=== PATIENT | female | born 1990 | race Caucasian/White ===

== ENCOUNTER → 2018-05-12 | Outpatient (CLI) | payer OTHER ==
[~2018-05-12] MED LIST: AC325T PO; CEFU500T34 PO; CEFU500T5 PO; DILT180C PO; OXYC-12 PO; PREN1TAB39; RNT150T PO
== END ==
LOC: CARD 10:39
PROVIDERS: ATTEND Internal Medicine Cardiovascular Disease
DX: R07.89 Other chest pain (principal); I47.1 Supraventricular tachycardia
CPT/HCPCS: 93306

== ENCOUNTER 2018-11-08 03:22 | Inpatient (IN) | payer BC, OTHER ==
[2018-11-08] VITALS (66 sets, daily range): BP systolic 88–133; BP diastolic 51–82
[~2018-11-08] VITALS: Ht 162.6 cm; Wt 102.1 kg
--- NOTE | 2018-11-08 03:25 | NUR ---
ELIZABETH ELLIOTT presented to unit via ambulatory from ED, accompanied by s/o, with c/o CONTRACTIONS. ELIZABETH ELLIOTT weighed, gowned, voided, and to bed. EFHM and TOCO applied, VS taken. ELIZABETH ELLIOTT oriented to bed controls, call light, TV, heat, and A/C controls.
[2018-11-08] MEDS ORDERED: D5 LR IV SOLUTION 1,000 ML IV ONE (03:46)
[2018-11-08] MEDS ORDERED: AMPICILLIN 2,000 MG/20 ML (IV USE) ONE (03:46)
[2018-11-08] MEDS ORDERED: NS (IVPB) 50 ML ONE (03:46)
--- NOTE | 2018-11-08 03:48 | NUR ---
Dr Romero called per H Heady RN to notify of patient arrival, complaints of contraction and evaluation. New orders for admission received.
[2018-11-08] MEDS ORDERED: AMPICILLIN FOR IV USE 2,000 MG in NS (IVPB) 50 ML IV SCH (03:52)
--- OUTSIDE RECORDS SUMMARY | 2018-11-08 04:00 | XMS REPORT ---
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
--- OUTSIDE RECORDS SUMMARY | 2018-11-08 04:01 | XMS REPORT | Continuity of Care Document ---
Author Author [facility] Address Unknown Phone Unavailable Allergies Active Description Code Type Severity Reaction Onset Reported/Identified Relationship to Patient Clinical Status Yes NO KNOWN DRUG ALLERGIES UNKNOWN NO KNOWN DRUG ALLERG Yes No Known Drug Allergies [id number] Drug Allergy Unknown N/A 10/08/2008 Medications Medication Packaging Start Date Stop Date Route Dosage Sig FAMOTIDINE VIAL INJ 20 MG/2CC (PEPCID VIAL) MG 07/13/2017 07/13/2017 ONCE&1630 ONDANSETRON VIAL INJ 4 MG/2CC (ZOFRAN 2CC VIAL) MG 07/13/2017 07/13/2017 ONCE&1630 PANTOPAZOLE VIAL INJ 40 MG (PROTONIX IV) MG 07/13/2017 07/13/2017 ONCE&1630 LACTATED RINGERS 1000CC IV BAG INJ ml 07/13/2017 07/13/2017 ONCE&1701 GI COCKTAIL SINGLE DOSE LIQ (GRASSHOPPER) ML 07/13/2017 07/13/2017 ONCE&1800 Problems Date Dx Coded Attending Type Code Diagnosis Diagnosed By 06/28/2008 V22.0 Pc Normal First 06/28/2008 V28.8 Screen Glucose Tolerance/tetra Screen 06/28/2008 SERGEI KAUR DO V22.0 Pc Normal First 06/28/2008 SERGEI KAUR DO V28.8 Screen Glucose Tolerance/tetra Screen 06/28/2008 SERGEI KAUR DO V22.0 Pc Normal First 06/28/2008 SERGEI KAUR DO V28.8 Screen Glucose Tolerance/tetra Screen 10/13/2008 285.9 Anemia Unspecified 10/13/2008 SERGEI AKUR DO 285.9 Anemia Unspecified 10/13/2008 SERGEI KAUR DO 285.9 Anemia Unspecified 01/04/2009 V72.31 Pelvic Exam ( internal) 01/04/2009 SERGEI KAUR DO V72.31 Pelvic Exam (internal) 01/04/2009 SERGEI KAUR DO V72.31 Pelvic Exam (internal) 05/24/2009 V22.1 Pc Other Normal 05/24/2009 V72.42 Test Positive Result 05/24/2009 SERGEI KAUR DO V22.1 Pc Other Normal 05/24/2009 SERGEI KAUR DO V72.42 Test Positive Result 05/24/2009 SERGEI KAUR DO V22.1 Pc Other Normal 05/24/2009 SERGEI KAUR DO V72.42 Test Positive Result 06/05/2009 462 Acute Pharyngitis 06/05/2009 SERGEI KAUR DO 462 Acute Pharyngitis 06/05/2009 SERGEI KAUR DO 462 Acute Pharyngitis 10/13/2009 787.03 Vomiting Alone 10/13/2009 SERGEI KAUR DO 787.03 Vomiting Alone 10/13/2009 SERGEI KAUR DO 787.03 Vomiting Alone 03/04/2010 616.10 Vaginitis Vulvovaginitis Unspecified 03/04/2010 V24.2 F/u , Routine 03/04/2010 SERGEI KAUR DO 616.10 Vaginitis Vulvovaginitis Unspecified 03/04/2010 SERGEI KAUR DO V24.2 F/u, Routine 03/04/2010 SERGEI KAUR DO 616.10 Vaginitis Vulvovaginitis Unspecified 03/04/2010 SERGEI KAUR DO V24.2 F/u, Routine 01/20/2011 641.90 Compl Of - Bleeding 01/20/2011 V74.5 Std Screen 01/20/2011 SERGEI KAUR DO 641.90 Compl Of - Bleeding 01/20/2011 SERGEI KAUR DO V74.5 Std Screen 01/20/2011 SERGEI KAUR DO 641.90 Compl Of - Bleeding 01/20/2011 SERGEI KAUR DO V74.5 Std Screen 03/12/2011 655.13 Abnormal Tetra Screen (downs Or Trisomy 18) 03/12/2011 656.40 Intrauterine Affecting Management Of Mother Unspecified As To Episode Of Care 03/12/2011 SERGEI KAUR DO 655.13 Abnormal Tetra Screen (downs Or Trisomy 18) 03/12/2011 SERGEI KAUR DO 656.40 Intrauterine Affecting Management Of Mother Unspecified As To Episode Of Care 03/12/2011 SERGEI KAUR DO 655.13 Abnormal Tetra Screen (downs Or Trisomy 18) 03/12/2011 SERGEI KAUR DO 656.40 Intrauterine Affecting Management Of Mother Unspecified As To Episode Of Care 03/18/2011 656.41 Intrauterine Affecting Management Of Mother Delivered 03/18/2011 SERGEI KAUR DO 656.41 Intrauterine Affecting Management Of Mother Delivered 03/18/2011 SERGEI KAUR DO 656.41 Intrauterine Affecting Management Of Mother Delivered 04/11/2011 V70.3 Sports/school Exam 04/11/2011 SERGEI KAUR DO V70.3 Sports/school Exam 04/11/2011 SERGEI KAUR DO V70.3 Sports/school Exam 05/12/2011 V72.42 Test Positive Result 05/12/2011 SERGEI KAUR DO V72.42 Test Positive Result 05/12/2011 SERGEI KAUR DO V72.42 Test Positive Result 06/10/2011 787.02 Nausea Alone 06/10/2011 V22.1 , NORMAL OTHER 06/10/2011 SERGEI KAUR DO 787.02 Nausea Alone 06/10/2011 SERGEI KAUR DO V22.1 , NORMAL OTHER 06/10/2011 SERGEI KAUR DO 787.02 Nausea Alone 06/10/2011 SERGEI KAUR DO V22.1 , NORMAL OTHER 07/03/2011 078.11 CONDYLOMA ACUMINATUM 07/03/2011 616.10 Vaginitis Vulvovaginitis Unspecified 07/03/2011 V04.81 FLU DX (3 YRS AND ABOVE, IM) 07/03/2011 V22.0 , Normal First 07/03/2011 V72.31 Weigh Box Tender Exam, Routine 07/03/2011 V74.5 Std Screen 07/03/2011 SERGEI KAUR DO 078.11 CONDYLOMA ACUMINATUM 07/03/2011 SERGEI KAUR DO 616.10 Vaginitis Vulvovaginitis Unspecified 07/03/2011 SERGEI KAUR DO V04.81 FLU DX (3 YRS AND ABOVE, IM) 07/03/2011 SERGEI KAUR DO V22.0 , Normal First 07/03/2011 SERGEI KAUR DO V72.31 Weigh Box Tender Exam, Routine 07/03/2011 SERGEI KAUR DO V74.5 Std Screen 07/03/2011 SERGEI KAUR DO 078.11 CONDYLOMA ACUMINATUM 07/03/2011 SERGEI KAUR DO 616.10 Vaginitis Vulvovaginitis Unspecified 07/03/2011 SERGEI KAUR DO V04.81 FLU DX (3 YRS AND ABOVE, IM) 07/03/2011 SERGEI KAUR DO V22.0 , Normal First 07/03/2011 SERGEI KAUR DO V72.31 Weigh Box Tender Exam, Routine 07/03/2011 SERGEI KAUR DO V74.5 Std Screen 01/01/2012 V02.51 GBS - CARRIER OR SUSPECTED CARRIER 01/01/2012 SERGEI KAUR DO V02.51 GBS - CARRIER OR SUSPECTED CARRIER 01/01/2012 SERGEI KAUR DO V02.51 GBS - CARRIER OR SUSPECTED CARRIER 04/12/2012 530.81 GERD 04/12/2012 616.10 VAGINITIS VULVOVAGINITIS UNSPECIFIED 04/12/2012 786.50 CHEST PAIN 04/12/2012 SERGEI KAUR DO 530.81 GERD 04/12/2012 SERGEI KAUR DO 616.10 VAGINITIS VULVOVAGINITIS UNSPECIFIED 04/12/2012 SERGEI KAUR DO 786.50 CHEST PAIN 04/12/2012 SERGEI KAUR DO 530.81 GERD 04/12/2012 SERGEI KAUR DO K 616.10 VAGINITIS VULVOVAGINITIS UNSPECIFIED 04/12/2012 SERGEI KAUR DO K 786.50 CHEST PAIN 12/13/2012 SERGEI KAUR DO 780.4 DIZZINESS AND GIDDINESS 12/13/2012 SERGEI KAUR DO 780.4 DIZZINESS AND GIDDINESS 01/21/2013 SERGEI KAUR DO 427.89 OTHER SPECIFIED CARDIAC DYSRHYTHMIAS 01/21/2013 SERGEI KAUR DO 427.89 OTHER SPECIFIED CARDIAC DYSRHYTHMIAS 02/21/2013 Ot 785.1 PALPITATIONS 02/21/2013 Ot 786.59 CHEST PAIN NEC 02/21/2013 Ot V17.49 FAMILY HISTORY OF OTHER CARDIOVASCULAR D 03/20/2013 Ot 780.4 DIZZINESS AND GIDDINESS 03/20/2013 Ot 785.0 TACHYCARDIA NOS 12/17/2013 SERGEI KAUR DO Antonina 708.1 IDIOPATHIC URTICARIA 01/03/2014 OFELIA EASTMAN [facility], SANDIE [facility] CCDS Ot 427.1 PAROX VENTRIC TACHYCARD 01/03/2014 OFELIA EASTMAN [facility], ALI [facility] CCDS Ot V58.69 OTH MED,LT,CURRENT USE 07/13/2017 Gavin López 535.00 ACUTE GASTRITIS, WITHOUT MENTION OF HEMORRHAGE 07/13/2017 Gavin López 789.07 ABDOMINAL PAIN, GENERALIZED 07/13/2017 Gavin López K29.00 ACUTE GASTRITIS WITHOUT BLEEDING 07/13/2017 Gavin López R10.84 GENERALIZED ABDOMINAL PAIN 10/19/2017 DAHLIA PARRY 783.1 ABNORMAL WEIGHT GAIN 10/19/2017 DAHLIA PARRY R63.5 ABNORMAL WEIGHT GAIN 10/19/2017 DAHLIA PARRY V70.0 ROUTINE GENERAL MEDICAL EXAMINATION AT A HEALTH CARE FACILITY 10/19/2017 DAHLIA PARRY Z00.00 ENCOUNTER FOR GENERAL ADULT MEDICAL EXAMINATION WITHOUT ABNORMAL FINDINGS 10/19/2017 DAHLIA PARRY 783.1 ABNORMAL WEIGHT GAIN 10/19/2017 DAHLIA PARRY R63.5 ABNORMAL WEIGHT GAIN 10/19/2017 DAHLIA PARRY V70.0 ROUTINE GENERAL MEDICAL EXAMINATION AT A HEALTH CARE FACILITY 10/19/2017 DAHLIA PARRY Z00.00 ENCOUNTER FOR GENERAL ADULT MEDICAL EXAMINATION WITHOUT ABNORMAL FINDINGS 10/19/2017 DAHLIA PARRY 783.1 ABNORMAL WEIGHT GAIN 10/19/2017 DAHLIA PARRY R63.5 ABNORMAL WEIGHT GAIN 10/19/2017 DAHLIA PARRY V70.0 ROUTINE GENERAL MEDICAL EXAMINATION AT A HEALTH CARE FACILITY 10/19/2017 DAHLIA PARRY Z00.00 ENCOUNTER FOR GENERAL ADULT MEDICAL EXAMINATION WITHOUT ABNORMAL FINDINGS 2017 DAHLIA PARRY V16.3 FAMILY HISTORY OF MALIGNANT NEOPLASM OF BREAST 2017 DAHLIA PARRY V70.0 ROUTINE GENERAL MEDICAL EXAMINATION AT A HEALTH CARE FACILITY 2017 DAHLIA PARRY V76.10 BREAST SCREENING, UNSPECIFIED 2017 DAHLIA PARRY Z00.00 ENCOUNTER FOR GENERAL ADULT MEDICAL EXAMINATION WITHOUT ABNORMAL FINDINGS 2017 DAHLIA PARRY Z12.39 ENCOUNTER FOR OTHER SCREENING FOR MALIGNANT NEOPLASM OF BREAST 2017 DAHLIA PARRY Z80.3 FAMILY HISTORY OF MALIGNANT NEOPLASM OF BREAST 2017 DAHLIA PARRY V16.3 FAMILY HISTORY OF MALIGNANT NEOPLASM OF BREAST 2017 DAHLIA PARRY V70.0 ROUTINE GENERAL MEDICAL EXAMINATION AT A HEALTH CARE FACILITY 2017 DAHLIA PARRY V76.10 BREAST SCREENING, UNSPECIFIED 2017 DAHLIA PARRY Z00.00 ENCOUNTER FOR GENERAL ADULT MEDICAL EXAMINATION WITHOUT ABNORMAL FINDINGS 2017 DAHLIA PARRY Z12.39 ENCOUNTER FOR OTHER SCREENING FOR MALIGNANT NEOPLASM OF BREAST 2017 DAHLIA PARRY Z80.3 FAMILY HISTORY OF MALIGNANT NEOPLASM OF BREAST 12/03/2017 Ot 644.13 THREAT LABOR NEC-ANTEPAR 03/25/2018 Ot 780.79 OTH MALAISE FATIGUE 03/25/2018 Ot 785.1 PALPITATIONS 03/25/2018 Ot 786.50 CHEST PAIN NOS 03/25/2018 Ot V72.63 PRE- PROCEDURAL LABORATORY EXAMINATION 03/25/2018 Ot V72.81 EXAM-PRE- OPERATIVE CARDIOVASCULAR 03/25/2018 Ot 785.1 PALPITATIONS 03/25/2018 Ot 786.59 CHEST PAIN NEC 05/12/2018 Ot 780.79 OTH MALAISE FATIGUE 05/12/2018 Ot 785.1 PALPITATIONS 05/12/2018 Ot 786.50 CHEST PAIN NOS 05/12/2018 Ot V72.63 PRE- PROCEDURAL LABORATORY EXAMINATION 05/12/2018 Ot V72.81 EXAM-PRE- OPERATIVE CARDIOVASCULAR 05/12/2018 Ot 785.1 PALPITATIONS 05/12/2018 Ot 786.59 CHEST PAIN NEC 05/13/2018 OFELIA EASTMAN FACC, SANDIE FACP CCDS Ot I47.1 SUPRAVENTRICULAR TACHYCARDIA 05/13/2018 OFELIA EASTMAN FACC, SANDIE FACP CCDS Ot R07.89 OTHER CHEST PAIN 06/01/2018 OFELIA EASTMAN FACC, SANDIE FACP CCDS Ot I47.1 SUPRAVENTRICULAR TACHYCARDIA 06/01/2018 OFELIA EASTMAN FACC, SANDIE FACP CCDS Ot R07.89 OTHER CHEST PAIN 07/03/2018 Ot 644.13 THREAT LABOR NEC-ANTEPAR Procedures Code Description Performed By Performed On Cardiolog Sandie Manzano 12/14/2012 40196 EVENT MONITOR 12/20/2012 Results Test Result Range Urinalysis - 07/13/17 16:30 Icotest N/A Negative Urine Volume Urine Volume Sufficient (10mL) Urine-Appearance Clear Clear Urine-Bacteria Trace Urine-Bilirubin Negative Negative Urine-Blood Negative Negative Urine-Color Yellow Colorless-Lt. Yellow Urine-Epithelial Cells 0-5/HPF Urine-Glucose Negative Negative Urine-Ketones Negative Negative Urine-Leukocytes 1+ Negative Urine-Nitrite Negative Negative Urine-Other Urine Saved if Culture Needed (48hrs from time of collection) Urine-pH 6.5 5-8.5 Urine-Protein Negative Negative Urine-Specific [place] 1.020 1.000-1.030 Urine-WBC 0-2/HPF Urobilinogen 0.2 E.U./dL 0.2-1.0 Thyroid Stimulating Hormone - 10/19/17 08:35 TSH 2.17 mIU/mL 0.32-5.00 Pap IG (Image Guided) - 10/19/17 08:35 DIAGNOSIS: Comment Specimen adequacy: Comment Clinician provided ICD10: Comment Performed by: Comment . . Pathologist provided ICD10: Comment Note: Comment Test Methodology: Comment Encounters ACCT No. Visit Date/Time Discharge Status Pt. Type Provider Facility Loc./Unit Complaint [id number] 12/17/2013 12:38:00 12/17/2013 23:59:59 CLS Outpatient SERGEI KAUR DO [id number] 12/13/2012 18:00:00 12/13/2012 23:59:59 CLS Outpatient SERGEI KAUR DO [id number] 11/23/2012 13:40:00 11/23/2012 23:59:59 CLS Outpatient [id number] 2017 11:37:00 2017 23:59:00 DIS Outpatient DAHLIA PARRY [id number] 10/19/2017 14:09:00 10/19/2017 23:59:00 DIS Outpatient DAHLIA PARRY [id number] 08/17/2017 12:49:00 08/17/2017 23:59:00 DIS Outpatient KANE VERA [id number] 07/13/2017 16:01:00 07/13/2017 18:33:00 DIS Outpatient [facility] [place] [id number] 07/13/2017 16:33:46 Document Registration [id number] 05/12/2018 10:39:00 05/12/2018 23:59:59 CLS Outpatient OFELIA EASTMAN FACC, ALI FACP CCDS [facility] CARD R07.89 CHEST DISCOMFORT [id number] 02/23/2018 16:23:00 02/23/2018 23:59:59 CLS Preadmit OFELIA EASTMAN FACC, ALI FACP CCDS [facility] CARD R07.89 CHEST DISCOMFORT [id number] 01/03/2014 07:47:00 01/03/2014 14:40:00 DIS Outpatient OFELIA EASTMAN FACC, SANDIE HERNANDEZ CCDS [facility] CATH PALPITATIONS [id number] 02/21/2013 06:41:00 Document Registration [id number] 02/18/2013 12:59:00 Document Registration [id number] 02/18/2013 08:43:00 Document Registration [id number] 01/13/2013 09:50:00 Document Registration [id number] 12/21/2009 01:05:00 Document Registration [id number] 10/23/2017 15:15:00 Document Registration
[2018-11-08] MEDS: D5 LR IV SOLUTION 1,000 ML IV SCH ×3 (04:10→18:15)
[2018-11-08 04:11] LABS: BASOPHILS % (AUTO) 0 % (0-10); EOSINOPHILS # (AUTO) 0.1 10^3/uL (0.0-0.3); EOSINOPHILS % (AUTO) 1 % (0-10); HEMATOCRIT 33 % (35-52); HEMOGLOBIN 10.7 G/DL (11.5-16.0); LYMPHOCYTES # (AUTO) 2.4 X 10^3 (1.0-4.0); LYMPHOCYTES % (AUTO) 31 % (12-44); MEAN CORPUSCULAR HEMOGLOBIN 27 PG (25-34); MEAN CORPUSCULAR HGB CONC 33 G/DL (32-36); MEAN CORPUSCULAR VOLUME 82 FL (80-99); MONOCYTES # (AUTO) 0.6 X 10^3 (0.0-1.0); MONOCYTES % (AUTO) 7 % (0-12); NEUTROPHILS # (AUTO) 4.6 X 10^3 (1.8-7.8); NEUTROPHILS % (AUTO) 60 % (42-75); PLATELET COUNT 260 10^3/uL (130-400); RED BLOOD COUNT 3.99 10^6/uL (4.35-5.85); RED CELL DISTRIBUTION WIDTH 13.4 % (10.0-14.5); WHITE BLOOD COUNT 7.6 10^3/uL (4.3-11.0)
[2018-11-08] MEDS ORDERED: PREN-53 PO (04:14)
[2018-11-08] MEDS ORDERED: CALC500T7 PO (04:15)
[2018-11-08] MEDS ORDERED: CETI10CA PO (04:15)
[2018-11-08] MEDS ORDERED: CATHETER FLUSH 10 ML SYR IV SCH (06:00)
[2018-11-08] MEDS ORDERED: OXYTOCIN/NORMAL SALINE 500 ML IV SCH ×2 (07:18→22:16)
--- NOTE | 2018-11-08 07:23 | History & Physical ---
History and Physical Date Seen by Provider: Nov 08, 2018 Time Seen by Provider: 07:21 This patient is a 27-year-old A1 white female with an EDC of 1 2519 putting her now 30 737 weeks gestation she was admitted in labor. Her has been uncomplicated to date. GBS culture was positive and she has been started on ampicillin for GBS prophylaxis. She denies rupture membranes or bleeding. She has demonstrated cervical change during the period of observation prior to admission. Allergies are none Occasions are vitamins Past medical history, past surgical history, obstetric history, family history, and social histories are per the antepartum record HEENT exam is normal Neck supple no lymphadenopathy no thyromegaly Abdomen is gravid soft nontender nondistended Extreme show clubbing cyanosis. There is no Homans sign. Pelvic exam is pending Laboratory Tests 11/08/18 04:00 monitor shows contractions every 2-4 minutes. There is a normal heart rate pattern Assessment and plan term at 37-3/7 weeks' gestation in labor. Plan is for expectant management. The vaginal delivery. 37-3/7 weeks' gestation in labor Allergies and Home Medications Allergies Coded Allergies: No Known Drug Allergies (Verified , 10/08/08) Home Medications Iau223/Iron Fumarate/FA/Dss 1 Each Tablet, 1 EACH PO DAILY, (Reported) Patient Home Medication List Home Medication List Reviewed: Yes Clinical Quality Measures DVT/VTE Risk/Contraindication: Risk Factor Score Per Nursin RFS Level Per Nursing on Admit: 2=Moderate HUGH AGUILAR MD Nov 08, 2018 07:23
[2018-11-08] MEDS: AMPICILLIN FOR IV USE 1,000 MG in NS (IVPB) 50 ML IV SCH ×3 (07:50→16:43)
[2018-11-08] MEDS ORDERED: fentaNYL INJECTION 100 MCG/2 ML AMP ONE (08:50)
[2018-11-08] MEDS ORDERED: BUPIVACAINE 0.25% 30 ML (SENSORCAINE) VIAL ONE (08:50)
[2018-11-08] MEDS ORDERED: LACTATED RINGERS 1,000 ML IV ONE (08:51)
[2018-11-08] MEDS ORDERED: diphenhydrAMINE 50 MG/ML INJ (BENADRYL) IV PRN (09:00)
[2018-11-08] MEDS ORDERED: NALOXONE 0.4 MG/ML 1 ML (NARCAN) VIAL IV PRN (09:00)
[2018-11-08] MEDS ORDERED: ONDANSETRON 4 MG/2 ML (SDV) Z0FRAN IV PRN (09:00)
[2018-11-08] MEDS ORDERED: CATHETER FLUSH 10 ML SYR IV PRN (09:00)
[2018-11-08] MEDS: EPIDURAL (SUFENTA 0.6MCG/ML BUPIVA 0.125%) 100 ML BAG EPI SCH ×2 (09:25→18:00)
[2018-11-08] MEDS ORDERED: LIDOCAINE/EPI 2% 1:200,00 (XYLOCAINE) 10 ML VIAL ONE (19:55)
[2018-11-08] MEDS ORDERED: DOCU-143 PO (20:09)
[2018-11-08] MEDS ORDERED: IBUP-1780 PO (20:09)
[2018-11-08] MEDS ORDERED: OXYC1TAB87 PO (20:09)
--- NOTE | 2018-11-08 20:10 | Discharge Instructions ---
Discharge Instructions Discharge Medications New, Converted or Re-Newed RX: RX on Chart Patient Instructions Patient Instructions: As directed Return to The Hospital For: DIRECTED Activity & Diet Discharge Diet: No Restrictions Activity as Tolerated: No Orders-Post D/C & Referrals Follow Up Appt: Call to make follow up appt. for patient in 4 weeks. Activity Per routine post vaginal delivery instructions. Diet as tolerated Patient may shower or tub bathe as desired. HUGH AGUILAR MD Nov 08, 2018 20:10
--- NOTE | 2018-11-08 21:45 | NUR ---
Report given to Stephenie ARIZA,
--- NOTE | 2018-11-08 21:50 | NUR ---
Report taken from Usha Mayers. Nurse at bedside for assessment. Fundus massaged. Large clot and heavy bleeding expelled with massage. Fundus firm, but 2 above umbilicus. After firm massage, fundus is at umbilius and bleeding is minimal. Chux and pad removed and assessed.
--- NOTE | 2018-11-08 22:10 | NUR ---
Nurse at pt bedside. Fundus massaged. Fudus firm and at umbilicus. Minimal bleeding noted during this rub. 2230:Pt. states that she needs to pee, but is still unable to move right leg much. Pt. placed on bedpan, but unable to void at this time.
[2018-11-08] MEDS ORDERED: TETANUS,DIPTH,PERTUSS P/F (BOOSTRIX) 0.5 ML VIAL IM ONE (22:30)
[2018-11-08] MEDS ORDERED: oxyCODONE/APAP 5/325MG (PERCOCET 5) TABLET PO PRN (22:30)
[2018-11-08] MEDS: KETOROLAC 30 MG/ML VIAL IV SCH (22:30)
[2018-11-08] MEDS ORDERED: MEASLES,MUMPS,RUBELLA 1 EA INJ SC ONE (22:30)
[2018-11-08] MEDS ORDERED: BENZOCAINE/MENTHOL (DERMOPLAST) 56 ML CAN TP PRN (22:30)
[2018-11-08] MEDS ORDERED: ONDANSETRON 4 MG/2 ML (SDV) Z0FRAN IVP PRN (22:30)
--- NOTE | 2018-11-08 22:30 | NUR ---
Epidural removed without difficulty. Tip intact.
--- NOTE | 2018-11-08 23:00 | NUR ---
Pt. still cannot lift right leg off of bed, but states that she still needs to use the restroom. Nurse offers a bedpan or straight cath at this time. Pt. chooses to sit on bedpan at this time. Pt. voids 500ml. Pericare provided and pad and underwear put on.
[2018-11-09 02:51] VITALS: BP 105/74
--- NOTE | 2018-11-09 04:28 | OPERATIVE REPORT ---
DATE OF SERVICE: 11/08/2018 DELIVERY NOTE The patient delivered by a term spontaneous vaginal delivery a viable male infant with Apgars of 7 and 8 at 1 and 5 minutes, expected weight of 9 pound 1 ounce, time of 20:27 and a cord blood gas pH that is pending. The infant was delivered over a first-degree posterior fourchette laceration under epidural analgesia. The was bulb suctioned on delivery of the head. There was a shoulder dystocia encountered that was anticipated and was relieved with Heidy and suprapubic pressure from the patient's left lower quadrant to her right. I rotated the anterior shoulder about 45 degrees and allowed for the delivery to be completed and right out a minute from the time the head was delivered until the shoulders passed through the introitus. The delivery was completed easily atraumatically. The was bulb suctioned. When the cord was relatively pulseless, it was doubly clamped, father cut the cord and baby was passed to mom's abdomen. Cord bloods were obtained. Placenta then delivered spontaneously Dinh. It was normal with a 3-vessel cord. The cervix, vagina, rectum and perineum were examined and found intact, except for the first-degree perineal laceration of approximately 3 cm in length that was repaired with a single suture of 3-0 Vicryl Rapide in a running locked fashion. Good hemostasis was achieved. Good reapproximation was achieved. The patient tolerated the delivery and the repair well and remained in the LDR for recovery. Estimated blood loss was around 200 mL for delivery and the repair. The baby remained in the LDR with the mom. Job ID: [id number] DocumentID: [id number] Dictated Date: 11/08/2018 20:46:45 Electronic Resources Librarian Date: 11/09/2018 04:27:54 Dictated By: HUGH AGUILAR MD
[2018-11-09] MEDS: KETOROLAC 30 MG/ML VIAL IV SCH (05:19)
--- NOTE | 2018-11-09 05:20 | NUR ---
Nurse at pt bedside to give Tordol. Pt. sleeping soundly with in bed. Pt. woke up and moved to open crib. Pt. educated about the dangers of sleeping with . Pt. states that she understands. Pt. expresses no other questions or concerns.
--- NOTE | 2018-11-09 07:15 | NUR ---
DR. AGUILAR HERE TO SEE PT.
--- NOTE | 2018-11-09 07:25 | Progress Note-Standard ---
Standard Progress Note Progress Notes/Assess & Plan Date Seen by a Provider: Nov 09, 2018 Time Seen by a Provider: 07:24 Progress/Assessment & Plan This patient is without complaint. She is ambulating, voiding, tolerating oral intake well has good pain control. Vital Signs 11/08/18 11/09/18 22:55 02:51 Temp 98.1 Pulse 91 Resp 16 B/P (MAP) 105/74 (84) Pulse Ox 100 O2 Delivery Room Air Vital signs are stable. Patient is afebrile. Fundus is firm below the umbilicus and nontender. Extremities show no clubbing or cyanosis. There is no Homans sign. Assessment and plan day number 1 status post term spontaneous vaginal delivery doing well. Plan is for routine convalescence care today and discharge home tomorrow HUGH AGUILAR MD Nov 09, 2018 07:25
--- NOTE | 2018-11-09 07:31 | Anesthesia-Regional Post-Op ---
Regional Patient Condition Mental Status: Alert, Oriented x3 Circulation: Same as Pre-Op Headache: Absent Sensation: Full Recovery Motor Block: Absent Post Op Complications Complications None Follow Up Care/Instructions Patient Instructions None needed. Anesthesia/Patient Condition Patient is doing well, no complaints, stable vital signs, no apparent adverse anesthesia problems. No complications reported per nursing. KEYON NGUYEN CRNA Nov 09, 2018 07:31
--- NOTE | 2018-11-09 08:00 | NUR ---
SHOWERED WITHOUT PROBLEMS.
[2018-11-09 08:30] VITALS: BP 112/79
[2018-11-09] MEDS ORDERED: TETANUS,DIPTH,PERTUSS P/F (BOOSTRIX) 0.5 ML VIAL IM ONE (08:49)
--- NOTE | 2018-11-09 09:00 | NUR ---
A.M. ASSESSMENT COMPLETED. VSS.
[2018-11-09] MEDS: DOCUSATE SODIUM 100 MG (COLACE) CAP PO SCH (09:05)
--- NOTE | 2018-11-09 09:07 | NUR ---
TDAP GIVEN IM IN LEFT DELTOID. SITE CLEAR.
[2018-11-09 12:15] VITALS: BP 122/78
--- NOTE | 2018-11-09 12:30 | NUR ---
INFANT. DOING BETTER AT THIS TIME. GOOD INTERACTION NOTED. VSS.
[2018-11-09] MEDS ORDERED: IBUPROFEN 800 MG (MOTRIN) TAB PO ONE (12:35)
[2018-11-09] MEDS: IBUPROFEN 800 MG (MOTRIN) TAB PO SCH ×2 (12:40→18:39)
--- NOTE | 2018-11-09 16:00 | NUR ---
CONTINUES TO CARE FOR IN ROOM. OFFERS NO COMPLAINTS.
[2018-11-09 17:17] VITALS: BP 123/57
[2018-11-10] MEDS: IBUPROFEN 800 MG (MOTRIN) TAB PO SCH ×3 (00:06→12:02)
[2018-11-10 00:07] VITALS: BP 110/74
[2018-11-10] MEDS: DOCUSATE SODIUM 100 MG (COLACE) CAP PO SCH ×2 (00:07→09:41)
[2018-11-10 06:18] VITALS: BP 114/72
--- NOTE | 2018-11-10 07:30 | NUR ---
DR. AGUILAR HERE TO SEE PT. PLAN FOR DISCHARGE TODAY.
--- NOTE | 2018-11-10 07:44 | Progress Note-Standard ---
Standard Progress Note Progress Notes/Assess & Plan Date Seen by a Provider: Nov 10, 2018 Time Seen by a Provider: 07:43 Progress/Assessment & Plan This patient is without complaint. She is ambulating, voiding, tolerating oral intake well has good pain control. Vital Signs 11/08/18 11/09/18 22:55 02:51 Temp 98.1 Pulse 91 Resp 16 B/P (MAP) 105/74 (84) Pulse Ox 100 O2 Delivery Room Air Vital signs are stable. Patient is afebrile. Fundus is firm below the umbilicus and nontender. Extremities show no clubbing or cyanosis. There is no Homans sign. Assessment and plan day number 1 status post term spontaneous vaginal delivery doing well. Plan is for routine convalescence care today and discharge home tomorrow November 10, 2018 Patient without complaint. She is ambulating, voiding, tolerating oral intake well has good pain control. Patient is requesting discharge home. Vital Signs 11/10/18 06:18 Temp 97.9 Pulse 79 Resp 20 B/P (MAP) 114/72 (86) Pulse Ox 97 O2 Delivery Room Air Vital signs are stable. Patient is afebrile. Fundus is firm below the umbilicus and nontender. Extremities show no clubbing cyanosis. There is no Homans sign. Assessment and plan term spontaneous vaginal delivery at 37+ weeks gestation. Plan is for discharge home Final Diagnosis 37 week spontaneous vaginal delivery HUGH AGUILAR MD Nov 10, 2018 07:44
--- NOTE | 2018-11-10 09:00 | NUR ---
A.M. ASSESSMENT COMPLETED. VSS. PT UPSET WITH NOT GETTING TO GO HOME TODAY. REASSURANCE GIVEN.
[2018-11-10 09:30] VITALS: BP 96/51
--- NOTE | 2018-11-10 11:00 | NUR ---
PLAN TO GO TO ROOMING IN.
--- NOTE | 2018-11-10 12:00 | NUR ---
UP IN ROOM. CARING FOR INFANT. PUMPING BREASTS. BETTER SPIRITS NOTED. SPOUSE AT SIDE.
[2018-11-10 14:40] VITALS: BP 112/73
--- NOTE | 2018-11-10 14:40 | NUR ---
DISCHARGE INSTRUCTIONS REVIEWED WITH COPY TO PT. RXS GIVEN EARLIER TO PT. STATES UNDERSTANDING OF ALL INSTRUCTIONS AND NEED TO F/U SCHEDULED AND NEEDED.
[2018-11-10 15:00] VITALS: BP 112/73
--- NOTE | 2018-11-10 15:00 | NUR ---
DISMISSED FROM WS IN STABLE CONDITION. PT WILL BE A ROOMING IN MOM R/T INFANT HAVING TO STAY.
== END 2018-11-10 15:00 | disposition home or self-care (01) | DRG 807 ==
LOC: WSo 03:22 → LDRP 03:24 → WSo 03:55 → LDRP 11-09 00:15
PROVIDERS: ADMIT Obstetrics & Gynecology; ATTEND Obstetrics & Gynecology
PROC: 10E0XZZ Delivery of Products of Conception, External Approach (ICD-10-PCS; principal; 2018-11-08)
PROC: 0HQ9XZZ Repair Perineum Skin, External Approach (ICD-10-PCS; 2018-11-08)
DX: O66.0 Obstructed labor due to shoulder dystocia (principal); O70.0 First degree perineal laceration during delivery; O99.820 Streptococcus B carrier state complicating pregnancy; Z3A.37 37 weeks gestation of pregnancy; Z37.0 Single live birth
CPT/HCPCS: 36415; 85025; 86850; 86900; 86901; 90715; 99212

== ENCOUNTER 2020-12-07 10:22 | Inpatient (IN) | payer BC ==
[2020-12-07] VITALS (60 sets, daily range): BP systolic 122–171; BP diastolic 56–104
[~2020-12-07] VITALS: Ht 162.6 cm; Wt 111.8 kg
[~2020-12-07 10:22] MED LIST changes: +CALC500T7 PO; +CETI10CA PO; +DOCU-143 PO; +IBUP-1780 PO; +OXYC1TAB87 PO; +PREN-53 PO
--- NOTE | 2020-12-07 10:39 | NUR ---
ELIZABETH ELLIOTT presented to unit via ambulatory from clinic, accompanied by self, with c/o INDUCTION. ELIZABETH ELLIOTT weighed, gowned, voided, and to bed. EFHM and TOCO applied, VS taken. ELIZABETH ELLIOTT oriented to bed controls, call light, TV, heat, and A/C controls.
[2020-12-07] MEDS ORDERED: AMPICILLIN FOR IV USE 2,000 MG in WATER (STERILE) FOR INJECTION 14.8 ML IV SCH (10:56)
[2020-12-07] MEDS ORDERED: WATER (STERILE) FOR INJECTION 20 ML ONE (11:00)
[2020-12-07] MEDS ORDERED: OXYTOCIN PRE-MIX DRIP 500 ML IV SCH (11:00)
[2020-12-07] MEDS ORDERED: AMPICILLIN 2,000 MG/14.8 ML (IV USE) ONE (11:00)
[2020-12-07] MEDS ORDERED: D5 LR IV SOLUTION 1,000 ML IV SCH (11:00)
[2020-12-07] MEDS ORDERED: MINERAL OIL CONCENTRATE 99.9% 15 ML UDC TOP PRN (11:00)
[2020-12-07] MEDS ORDERED: AMPICILLIN FOR IV USE 2,000 MG in WATER (STERILE) FOR INJECTION 14.8 ML IV ONE (11:00)
[2020-12-07] MEDS ORDERED: D5 LR IV SOLUTION 1,000 ML IV ONE (11:00)
--- NOTE | 2020-12-07 11:07 | History & Physical ---
History and Physical Date Seen by Provider: Dec 07, 2020 Time Seen by Provider: 11:04 This patient is a 30-year-old 6 para 4 white female seen in clinic on this date with complaint of significantly increased abdominal pelvic pain back pain decreased movement and pelvic pressure. Ultrasound demonstrated significant polyhydramnios with an ARMAND of over 280. This patient's is, dated by positive GBS culture after 35 weeks gestation and also by an abnormal genetic screen suggestive of trisomy 13 for which she saw high-risk OB but declined amniocentesis. A high-risk OB felt that the fetus appeared normal Patient was sent to labor and delivery from my office due to the polyhydramnios and decreased movement and abnormal testing Allergies are none Medications are vitamins Medical social and surgical histories are per the antepartum record HEENT exam is normal Neck is supple no lymphadenopathy no thyromegaly Abdomen is gravid soft nontender nondistended Extreme show no clubbing or cyanosis. There is no Homans sign. Pelvic exam in clinic showed a cervix almost 2 cm dilated 50 percent effaced -1 station anterior and soft Assessment and plan 37-6/7 weeks' gestation with polyhydramnios abnormal genetic testing and decreased movement. Patient was sent from my office to labor and delivery for management including IV antibiotics for GBS prophylaxis as well as Pitocin induction and/or augmentation of labor. Anticipation is for vaginal delivery 37 weeks with polyhydramnios Allergies and Home Medications Allergies Coded Allergies: No Known Drug Allergies (Verified , 10/08/08) Home Medications Docusate Sodium 100 Mg Capsule, 100 MG PO BID Prescribed by: HUGH HUTSON on 11/08/182008 Ibuprofen 800 Mg Tablet, 800 MG PO Q6H PRN for PAIN Prescribed by: HUGH HUTSON on 11/08/182008 Oxycodone HCl/Acetaminophen 1 Each Tablet, 1 EACH PO Q4H PRN for PAIN-MODERATE Prescribed by: HUGH HUTSON on 11/08/182008 [id number]/Iron Fumarate/FA/Dss 1 Each Tablet, 1 EACH PO DAILY, (Reported) Patient Home Medication List Home Medication List Reviewed: Yes HUGH AGUILAR MD Dec 07, 2020 11:07
[2020-12-07] MEDS: D5 LR IV SOLUTION 1,000 ML IV SCH ×2 (11:25→18:24)
[2020-12-07 11:40] LABS: BASOPHILS % (AUTO) 0 % (0-10); EOSINOPHILS # (AUTO) 0.1 10^3/uL (0.0-0.3); EOSINOPHILS % (AUTO) 1 % (0-10); HEMATOCRIT 33 % (35-52); HEMOGLOBIN 10.7 g/dL (11.5-16.0); LYMPHOCYTES # (AUTO) 1.9 10^3/uL (1.0-4.0); LYMPHOCYTES % (AUTO) 21 % (12-44); MEAN CORPUSCULAR HEMOGLOBIN 28 pg (25-34); MEAN CORPUSCULAR HGB CONC 33 g/dL (32-36); MEAN CORPUSCULAR VOLUME 84 fL (80-99); MEAN PLATELET VOLUME 10.9 fL (9.0-12.2); MONOCYTES # (AUTO) 0.6 10^3/uL (0.0-1.0); MONOCYTES % (AUTO) 7 % (0-12); NEUTROPHILS # (AUTO) 6.6 10^3/uL (1.8-7.8); NEUTROPHILS % (AUTO) 72 % (42-75); PLATELET COUNT 285 10^3/uL (130-400); WHITE BLOOD COUNT 9.3 10^3/uL (4.3-11.0)
[2020-12-07] MEDS ORDERED: CATHETER FLUSH 10 ML SYR IV SCH (14:00)
[2020-12-07] MEDS ORDERED: AMPICILLIN FOR IV USE 1,000 MG in WATER (STERILE) FOR INJECTION 7.4 ML IV SCH (15:00)
[2020-12-07] MEDS: AMPICILLIN FOR IV USE 1,000 MG in WATER (STERILE) FOR INJECTION 7.4 ML IV SCH ×2 (15:39→19:34)
[2020-12-07] MEDS ORDERED: fentaNYL 2 mcg/ml BUPIVA 0.125 100 ML ONE (16:08)
[2020-12-07] MEDS ORDERED: diphenhydrAMINE 50 MG/ML INJ (BENADRYL) IVP ONE (16:15)
[2020-12-07] MEDS ORDERED: BUPIVACAINE 0.25% 30 ML (SENSORCAINE) VIAL ONE (16:34)
[2020-12-07] MEDS ORDERED: fentaNYL INJECTION 100 MCG/2 ML AMP ONE (16:34)
[2020-12-07] MEDS ORDERED: LIDOCAINE PF 2% 5 ML (XYLOCAINE) VIAL ONE (16:34)
[2020-12-07] MEDS ORDERED: NALOXONE 0.4 MG/ML 1 ML (NARCAN) VIAL IV PRN (17:15)
[2020-12-07] MEDS ORDERED: LACTATED RINGERS 1,000 ML IV ONE ×2 (17:15)
[2020-12-07] MEDS ORDERED: ONDANSETRON 4 MG/2 ML (SDV) Z0FRAN IV PRN (17:15)
[2020-12-07] MEDS: EPIDURAL (fentaNYL 2 MCG/ML BUPIVA 0.125%)100 ML BAG EPI PRN ×2 (17:46→23:24)
--- NOTE | 2020-12-07 20:48 | NUR ---
Dr. Romero called with update on pt. Informed that Pitocin is at 22. Informed of pt's contraction pattern and strip. Informed that pt. has been 3.5-4cm for the past two hours. states that we can keep upping pit as long as there are no concerns with strip. If concerned about strip nurse is to call to evaluate.
--- NOTE | 2020-12-07 21:16 | NUR ---
Dr. Romero called with report of pt. strip. Dr. Romero looked up strip at home and is unconcerned at this time. states that if pt. starts to have recurrent variables to call him back, but since strip has recovered with good variability to continue with orders of increasing pitocin. No further orders at this time.
--- NOTE | 2020-12-07 22:08 | NUR ---
called with report of SVE. Contraction pattern and strip reviewed. orders Pitocin to be maxed out at 40. states that he will be out to the hospital shortly.
[2020-12-07] MEDS ORDERED: LIDOCAINE/EPI 2% 1:200,00 (XYLOCAINE) 10 ML VIAL ONE (23:42)
[2020-12-08] VITALS (14 sets, daily range): BP systolic 104–162; BP diastolic 52–88
[2020-12-08] MEDS: AMPICILLIN FOR IV USE 1,000 MG in WATER (STERILE) FOR INJECTION 7.4 ML IV SCH (00:02)
[2020-12-08] MEDS ORDERED: BUTORPHANOL INJ 2 MG/ML (STADOL) VIAL ONE (00:52)
[2020-12-08] MEDS ORDERED: BUTORPHANOL INJ 2 MG/ML (STADOL) VIAL IV ONE (01:00)
[2020-12-08] MEDS: D5 LR IV SOLUTION 1,000 ML IV SCH (01:44)
--- NOTE | 2020-12-08 03:00 | NUR ---
0300: Pt. cleaned up and taken down out of stirrups. Bed put back together. Fundus massaged. Fundus firm and one under umbilicus. No clots expressed. Minimal bleeding noted. 0315: Fundus massaged. Fundus firm and one under umbilicus. No clots expressed. Minimal bleeding noted. 0330: Fundus massaged. Fundus firm and one under umbilicus. No clots expressed. Scant bleeding noted. 0345: Fundus massaged. Fundus firm and one under umbilicus. No clots expressed. Scant bleeding noted. 0400: Fundus massaged. Fundus firm and one under umbilicus. No clots expressed. Minimal bleeding noted. Pt. up to bathroom with nurse assist. Pt. able to void on toiled. Pad, underwear, and clean gown put on. Pt. moved to wheelchair and wheeled to room. Pt. settled in bed on PP unit. No questions or concerns at this time.
[2020-12-08] MEDS ORDERED: BENZOCAINE/MENTHOL (DERMOPLAST) 60 ML CAN TP ONE (03:05)
[2020-12-08] MEDS ORDERED: ONDANSETRON 4 MG/2 ML (SDV) Z0FRAN IVP PRN ×2 (03:15)
[2020-12-08] MEDS ORDERED: BENZOCAINE/MENTHOL (DERMOPLAST) 60 ML CAN TP PRN (03:15)
[2020-12-08] MEDS ORDERED: OXYTOCIN PRE-MIX DRIP 500 ML IV SCH (03:15)
[2020-12-08] MEDS ORDERED: oxyCODONE/APAP 5/325MG (PERCOCET 5) TABLET PO PRN (03:15)
[2020-12-08] MEDS ORDERED: MEASLES,MUMPS,RUBELLA 1 EA INJ SC ONE (03:15)
[2020-12-08] MEDS ORDERED: TETANUS,DIPTH,PERTUSS P/F (BOOSTRIX) 0.5 ML VIAL IM ONE (03:15)
[2020-12-08] MEDS: IBUPROFEN 800 MG (MOTRIN) TAB PO SCH ×3 (03:58→17:37)
--- NOTE | 2020-12-08 04:03 | OPERATIVE REPORT ---
DATE OF SERVICE: 12/08/2020 DELIVERY NOTE The patient delivered by term spontaneous vaginal delivery a viable female infant with Apgars of 8 and 9 at 1 and 5 minutes respectively, weight of 6 pounds 15 ounces. time of 0249 and a cord blood pH of 7.12. The was delivered over an intact perineum under epidural analgesia augmented with a pudendal block, there was placed just as the patient began pushing. The was delivered from a relatively high station to [facility] over a period of about 10 to 15 minutes of pushing. The patient had fairly intense pain, but pushed well affecting the vaginal delivery. The infant descended in a left occiput transverse position until almost At which point The vertex rotated to Straight occiput anterior for delivery of the head. The heart rate pattern had been demonstrating a category 2 pattern with deep variable decels as the patient was pushing. The occasionally was able to recover with the heart rate back in 120s to 140s. There was some terminal meconium when the baby delivered. The had spontaneous cry, moved all extremities, had excellent tone and reflexes after just a short time of recovery. The umbilical cord remained intact until pulseless when I was doubly clamped and the father cut the cord, the baby was taken to the warmer fairly promptly for attention by RT for immediate resuscitation due to the very tight delivery. The had stats, Apgars and blood gases noted above. The placenta delivered spontaneously Dinh. It was normal with 3-vessel cord. The cervix, vagina, rectum, and perineum were examined and found intact, except for some very superficial posterior fourchette abrasions that were hemostatic and required no repair. Sponge and needle counts were correct on completion of the delivery in the postoperative / post-delivery inspection. Blood loss was around 200 mL. The patient tolerated the delivery well and remained in the LDR. The baby remained with the mom. Job ID: [id number] DocumentID: [id number] Dictated Date: 12/08/2020 03:10:56 Patient Relations Liaison Date: 12/08/2020 04:03:23 Dictated By: HUGH AGUILAR MD MTDD
--- NOTE | 2020-12-08 06:30 | NUR ---
Pt. called out for help with changing pad and going to the bathroom. Pt. bled out the back of pad onto chux. [facility] provided. Pad and underwear changed. Fundus massaged. Minimal bleeding noted. Fundus firm and no clots noted.
[2020-12-08] MEDS: DOCUSATE SODIUM 100 MG (COLACE) CAP PO SCH ×2 (11:17→20:29)
--- NOTE | 2020-12-08 13:48 | Progress Note ---
Standard Progress Note Progress Notes/Assess & Plan Date Seen by a Provider: Dec 08, 2020 Time Seen by a Provider: 13:47 Progress/Assessment & Plan This patient is without complaint. She is ambulating, voiding, tolerating oral intake well and has good pain control. Vital Signs Date Time Temp Pulse Resp B/P (MAP) Pulse Ox O2 Delivery O2 Flow Rate FiO2 12/08/20 09:30 36.6 77 18 109/68 (82) Room Air 12/08/20 04:03 36.4 88 18 134/75 (94) Room Air 12/08/20 03:48 36.7 79 18 136/76 (96) Room Air 12/08/20 03:36 92 18 128/69 (88) Room Air 12/08/20 03:20 88 20 132/59 (83) Room Air 12/08/20 03:05 36.6 98 20 131/61 (84) 95 Room Air 12/08/20 02:25 36.4 98 20 95 Room Air 12/08/20 02:05 87 20 132/55 (80) Room Air 12/08/20 01:50 70 20 162/75 (104) Room Air 12/08/20 01:35 70 20 104/52 (69) Room Air 12/08/20 01:20 90 20 106/52 (70) Room Air 12/08/20 01:05 75 20 119/71 (87) Room Air 12/08/20 00:50 75 20 139/75 (96) Room Air 12/08/20 00:20 36.9 12/08/20 00:05 75 18 141/83 (102) Room Air 12/07/20 23:50 86 18 127/61 (83) Room Air 12/07/20 23:35 75 18 141/56 (84) Room Air 12/07/20 23:20 112 18 133/80 (97) Room Air 12/07/20 23:05 74 18 141/91 (108) Room Air 12/07/20 22:50 69 18 144/93 (110) Room Air 12/07/20 22:35 83 18 145/104 (118) Room Air 12/07/20 22:20 71 18 142/97 (112) Room Air 12/07/20 22:05 71 18 143/97 (112) Room Air 12/07/20 21:50 36.5 71 18 139/93 (108) Room Air 12/07/20 21:35 74 18 122/73 (89) Room Air 12/07/20 21:20 83 18 150/92 (111) Room Air 12/07/20 21:05 82 18 135/87 (103) Room Air 12/07/20 20:50 75 18 137/88 (104) Room Air 12/07/20 20:35 72 18 125/71 (89) Room Air 12/07/20 20:20 76 18 134/69 (90) Room Air 12/07/20 20:05 70 18 132/72 (92) Room Air 12/07/20 19:50 72 18 144/92 (109) Room Air 12/07/20 19:35 80 18 136/92 (107) Room Air 12/07/20 19:20 36.2 71 18 137/86 (103) Room Air 12/07/20 19:00 81 18 130/75 (93) Room Air 12/07/20 18:45 74 18 132/74 (93) Room Air 12/07/20 18:30 69 18 140/74 (96) Room Air 12/07/20 18:15 81 18 126/72 (90) Room Air 12/07/20 18:00 67 18 140/71 (94) Room Air 12/07/20 17:45 72 18 134/66 (88) 98 Room Air 12/07/20 17:30 77 18 138/72 (94) 98 12/07/20 17:25 75 18 152/91 (111) 98 Room Air 12/07/20 17:21 71 18 144/80 (101) 100 Room Air 12/07/20 17:17 75 18 135/77 (96) 100 Room Air 12/07/20 17:15 83 18 133/71 (91) 98 12/07/20 17:12 71 18 138/74 (95) 100 Non Rebreather 15.00 12/07/20 17:09 70 18 141/74 (96) 98 Room Air 12/07/20 17:05 71 18 145/72 (96) 98 Room Air 12/07/20 17:03 82 18 144/94 (111) 98 Room Air 12/07/20 17:00 36.1 78 18 154/89 (110) 97 12/07/20 16:57 71 18 156/77 (103) 97 Room Air 12/07/20 16:54 81 18 154/72 (99) 97 Room Air 12/07/20 16:51 81 18 154/72 (99) 97 Room Air 12/07/20 16:48 77 18 159/84 (109) 97 Room Air 12/07/20 16:45 77 18 160/88 (112) 97 12/07/20 16:43 81 18 171/72 (105) 97 Room Air 12/07/20 16:40 80 18 150/83 (105) 97 Room Air 12/07/20 16:37 85 18 152/73 (99) 97 Room Air 12/07/20 16:30 75 18 132/82 (99) 12/07/20 16:15 78 18 134/86 (102) 12/07/20 16:00 75 18 138/86 (103) 12/07/20 15:45 73 18 132/83 (99) 12/07/20 15:30 72 18 143/85 (104) 12/07/20 15:15 36.2 80 18 138/85 (102) 12/07/20 15:00 77 18 142/80 (100) 12/07/20 14:45 70 18 141/78 (99) 12/07/20 14:30 72 18 147/87 (107) 12/07/20 14:05 72 18 140/91 (107) Room Air 12/07/20 13:50 36.0 75 18 140/84 (102) Room Air I & O 12/08/20 07:00 Intake Total 3607.4 ml Balance 3607.4 ml Vital signs are stable. Patient is afebrile. Fundus is firm below the umbilicus and nontender. Extremities show no clubbing or cyanosis. There is no Homans' sign. Assessment and plan day 0 status post term spontaneous vaginal delivery at 38+ weeks gestation at about 3 AM this morning. Plan is for routine convalescent care Final Diagnosis 38-week spontaneous vaginal delivery HUGH AGUILAR MD Dec 08, 2020 13:48
[2020-12-08] MEDS ORDERED: DCS100C PO (13:53)
[2020-12-08] MEDS ORDERED: OXYC1TAB87 PO (13:53)
[2020-12-08] MEDS ORDERED: IBUP-1780 PO (13:53)
--- NOTE | 2020-12-08 13:54 | Discharge Inst-Surgical ---
Discharge Inst-Surgical Depart Medication/Instructions New, Converted or Re-Newed RX: RX on Chart Consults/Follow Up Patient Instructions: As directed Orders & Referrals Follow Up Appt: Call to make follow up appt. for patient in 4 weeks. Activity Per routine post vaginal delivery instructions. Please call in RX to patient pharmacy. Diet as tolerated Patient may shower or tub bathe as desired. Activity Activity as Tolerated: No Diet Discharge Diet: No Restrictions HUGH AGUILAR MD Dec 08, 2020 13:54
[2020-12-09] MEDS: IBUPROFEN 800 MG (MOTRIN) TAB PO SCH ×2 (00:10→05:50)
[2020-12-09 00:13] VITALS: BP 116/63
[2020-12-09 04:16] VITALS: BP 120/71
[2020-12-09 08:10] VITALS: BP 137/77
[2020-12-09] MEDS: DOCUSATE SODIUM 100 MG (COLACE) CAP PO SCH (09:43)
--- NOTE | 2020-12-09 11:35 | Progress Note ---
Standard Progress Note Progress Notes/Assess & Plan Date Seen by a Provider: Dec 09, 2020 Time Seen by a Provider: 11:33 Progress/Assessment & Plan This patient is without complaint. She is ambulating, voiding, tolerating oral intake well and has good pain control. Vital Signs Date Time Temp Pulse Resp B/P (MAP) Pulse Ox O2 Delivery O2 Flow Rate FiO2 12/08/20 09:30 36.6 77 18 109/68 (82) Room Air 12/08/20 04:03 36.4 88 18 134/75 (94) Room Air 12/08/20 03:48 36.7 79 18 136/76 (96) Room Air 12/08/20 03:36 92 18 128/69 (88) Room Air 12/08/20 03:20 88 20 132/59 (83) Room Air 12/08/20 03:05 36.6 98 20 131/61 (84) 95 Room Air 12/08/20 02:25 36.4 98 20 95 Room Air 12/08/20 02:05 87 20 132/55 (80) Room Air 12/08/20 01:50 70 20 162/75 (104) Room Air 12/08/20 01:35 70 20 104/52 (69) Room Air 12/08/20 01:20 90 20 106/52 (70) Room Air 12/08/20 01:05 75 20 119/71 (87) Room Air 12/08/20 00:50 75 20 139/75 (96) Room Air 12/08/20 00:20 36.9 12/08/20 00:05 75 18 141/83 (102) Room Air 12/07/20 23:50 86 18 127/61 (83) Room Air 12/07/20 23:35 75 18 141/56 (84) Room Air 12/07/20 23:20 112 18 133/80 (97) Room Air 12/07/20 23:05 74 18 141/91 (108) Room Air 12/07/20 22:50 69 18 144/93 (110) Room Air 12/07/20 22:35 83 18 145/104 (118) Room Air 12/07/20 22:20 71 18 142/97 (112) Room Air 12/07/20 22:05 71 18 143/97 (112) Room Air 12/07/20 21:50 36.5 71 18 139/93 (108) Room Air 12/07/20 21:35 74 18 122/73 (89) Room Air 12/07/20 21:20 83 18 150/92 (111) Room Air 12/07/20 21:05 82 18 135/87 (103) Room Air 12/07/20 20:50 75 18 137/88 (104) Room Air 12/07/20 20:35 72 18 125/71 (89) Room Air 12/07/20 20:20 76 18 134/69 (90) Room Air 12/07/20 20:05 70 18 132/72 (92) Room Air 12/07/20 19:50 72 18 144/92 (109) Room Air 12/07/20 19:35 80 18 136/92 (107) Room Air 12/07/20 19:20 36.2 71 18 137/86 (103) Room Air 12/07/20 19:00 81 18 130/75 (93) Room Air 12/07/20 18:45 74 18 132/74 (93) Room Air 12/07/20 18:30 69 18 140/74 (96) Room Air 12/07/20 18:15 81 18 126/72 (90) Room Air 12/07/20 18:00 67 18 140/71 (94) Room Air 12/07/20 17:45 72 18 134/66 (88) 98 Room Air 12/07/20 17:30 77 18 138/72 (94) 98 12/07/20 17:25 75 18 152/91 (111) 98 Room Air 12/07/20 17:21 71 18 144/80 (101) 100 Room Air 12/07/20 17:17 75 18 135/77 (96) 100 Room Air 12/07/20 17:15 83 18 133/71 (91) 98 12/07/20 17:12 71 18 138/74 (95) 100 Non Rebreather 15.00 12/07/20 17:09 70 18 141/74 (96) 98 Room Air 12/07/20 17:05 71 18 145/72 (96) 98 Room Air 12/07/20 17:03 82 18 144/94 (111) 98 Room Air 12/07/20 17:00 36.1 78 18 154/89 (110) 97 12/07/20 16:57 71 18 156/77 (103) 97 Room Air 12/07/20 16:54 81 18 154/72 (99) 97 Room Air 12/07/20 16:51 81 18 154/72 (99) 97 Room Air 12/07/20 16:48 77 18 159/84 (109) 97 Room Air 12/07/20 16:45 77 18 160/88 (112) 97 12/07/20 16:43 81 18 171/72 (105) 97 Room Air 12/07/20 16:40 80 18 150/83 (105) 97 Room Air 12/07/20 16:37 85 18 152/73 (99) 97 Room Air 12/07/20 16:30 75 18 132/82 (99) 12/07/20 16:15 78 18 134/86 (102) 12/07/20 16:00 75 18 138/86 (103) 12/07/20 15:45 73 18 132/83 (99) 12/07/20 15:30 72 18 143/85 (104) 12/07/20 15:15 36.2 80 18 138/85 (102) 12/07/20 15:00 77 18 142/80 (100) 12/07/20 14:45 70 18 141/78 (99) 12/07/20 14:30 72 18 147/87 (107) 12/07/20 14:05 72 18 140/91 (107) Room Air 12/07/20 13:50 36.0 75 18 140/84 (102) Room Air I & O 12/08/20 07:00 Intake Total 3607.4 ml Balance 3607.4 ml Vital signs are stable. Patient is afebrile. Fundus is firm below the umbilicus and nontender. Extremities show no clubbing or cyanosis. There is no Homans' sign. Assessment and plan day 0 status post term spontaneous vaginal delivery at 38+ weeks gestation at about 3 AM this morning. Plan is for routine convalescent care December 09, 2020 Patient is without complaint. She is ambulating, voiding, tolerating oral intake well and has good pain control. Patient is requesting discharge Vital Signs Date Time Temp Pulse Resp B/P (MAP) Pulse Ox O2 Delivery O2 Flow Rate FiO2 12/09/20 08:10 36.5 88 19 137/77 (97) 98 Room Air 12/09/20 04:16 37.0 71 18 120/71 (87) 97 Room Air 12/09/20 00:13 36.4 82 18 116/63 (80) 97 Room Air 12/08/20 20:15 37.0 80 16 98 Room Air 12/08/20 15:50 36.8 86 18 139/88 (105) Room Air Vital signs are stable. Patient is afebrile. Fundus is firm below the umbilicus and nontender. Extremities show no clubbing or cyanosis. There is no Homans' sign. Assessment and plan day #2 status post spontaneous vaginal delivery at 37+ weeks gestation. Patient is doing well will be discharged home Final Diagnosis 37 6/7-week spontaneous vaginal delivery HUGH AGUILAR MD Dec 09, 2020 11:34
--- NOTE | 2020-12-10 07:05 | Anesthesia-Regional Post-Op ---
Regional Significant Intra-Op Events Notes late entry from 12/08 0900 Patient Condition Mental Status: Alert, Oriented x3 Circulation: Same as Pre-Op Headache: Absent Sensation: Full Recovery Motor Block: Absent Post Op Complications Complications None Follow Up Care/Instructions Patient Instructions None needed. Anesthesia/Patient Condition Patient is doing well, no complaints, stable vital signs, no apparent adverse anesthesia problems. No complications reported per nursing. LILI KWOK CRNA Dec 10, 2020 07:05
== END 2020-12-09 12:00 | disposition home or self-care (01) | DRG 807 ==
LOC: LDRP 10:22 → WS 10:51 → LDRP 12-08 04:00
PROVIDERS: ADMIT Obstetrics & Gynecology; ATTEND Obstetrics & Gynecology
PROC: 10E0XZZ Delivery of Products of Conception, External Approach (ICD-10-PCS; principal; 2020-12-08)
DX: O40.3XX0 Polyhydramnios, third trimester, not applicable or unspecified (principal); Z37.0 Single live birth; Z3A.37 37 weeks gestation of pregnancy; O99.824 Streptococcus B carrier state complicating childbirth; O71.89 Other specified obstetric trauma; Z20.822 Contact with and (suspected) exposure to COVID-19
CPT/HCPCS: 36415; 85025; 86850; 86900; 86901; 87635

== ENCOUNTER → 2022-03-28 | Outpatient (CLI) | payer BC, OTHER ==
[~2022-03-28] MED LIST changes: +DOCU-239 PO
--- NOTE | 2022-03-28 11:34 | Diagnostic Imaging Report ---
INDICATION: Routine screening. Comparison is made with prior mammogram from 03/22/2021 and 10/27/2017. 2-D and 3-D bilateral screening mammography was performed with CAD. Both breasts are heterogeneously dense, limiting the sensitivity of mammography. No mass or malignant-appearing microcalcifications are seen. Axillae are unremarkable. IMPRESSION: No mammographic features suspicious for malignancy are identified. ACR BI-RADS Category 1: Negative. Result letter will be mailed to the patient. Note: At least 10% of breast cancer is not imaged by mammography. BI-RADS Category 1 Dictated by: Dictated on workstation # [id number]
== END ==
LOC: RAD 08:17
PROVIDERS: ATTEND Nurse Practitioner Family
DX: Z12.31 Encounter for screening mammogram for malignant neoplasm of breast (principal); Z80.3 Family history of malignant neoplasm of breast
CPT/HCPCS: 77063; 77067